=== PATIENT | female | born 1995 | race Caucasian/White ===

== ENCOUNTER → 2020-07-19 | Outpatient (CLI) | payer OTHER ==
[~2020-07-19] MED LIST: COLACE 100MG C100 MG PO; COLACE100 MG PO; IBUPROFEN600 MG PO; MIRALAX PO; MONO-LINYAH 281 EACH PO; NORCO 5-325 TA1 EACH PO
== END ==
LOC: KOH-I 13:00
DX: M54.6 Pain in thoracic spine (principal); M54.2 Cervicalgia; S22.039A Unspecified fracture of third thoracic vertebra, initial encounter for closed fracture; S22.049A Unspecified fracture of fourth thoracic vertebra, initial encounter for closed fracture; X58.XXXA Exposure to other specified factors, initial encounter
CPT/HCPCS: 72141; 72146